=== PATIENT | male | born 1995 | race Caucasian/White ===

== ENCOUNTER 2021-11-27 16:42 | Emergency (ER) | payer OTHER, SELFPAY ==
[2021-11-27 16:51] VITALS: BP 128/73; PULSE 59; RESP 18; TEMP 36.6; O2SAT 100; BMI 29.0
--- NOTE | 2021-11-27 17:15 | CRLHL7_ITS ---
For Patients: As a result of the Century Cures Act, medical imaging exams and procedure reports are released immediately into your electronic medical record. You may view this report before your referring provider. If you have questions, please contact your health care provider. HISTORY: Shortness of breath. COMPARISON: None available FINDINGS: A portable erect AP view of the chest was obtained at 1745 hours. The lungs are clear. No focal or diffuse infiltrates are present. The heart is normal in size. The mediastinum is normal in appearance. The osseous structures are normal in appearance for the patient`s age. IMPRESSION: Normal portable chest single view. Dictated by Babak Armstrong MD @ 11/27/2021 5:46:44 PM (Electronically Signed)
[2021-11-27 17:24] VITALS: O2SAT 100
--- OUTSIDE RECORDS SUMMARY | 2021-11-27 17:29 | XMS_ITS | Clinical Summary ---
:1995 Author Organization [employer] [facility] [place] [address] Care Team Providers Name Role Phone None, Primary Care Provider Unavailable Allergies Active Allergy Reactions Severity Noted Date Comments Azithromycin *Unknown - Childhood Rxn, Hives Low 6 Cefpodoxime Proxetil Hives 08/14/2008 Cefpodoxime *Unknown - Childhood Rxn 06/16/2016 Medications Medication Sig Dispensed Refills Start Date End Date Status ibuprofen (ADVIL; Take 200 mg by 0 Active MOTRIN) 200 mg tablet mouth 4 times daily if needed. cetirizine (ZYRTEC) 10 Take 10 mg by 0 Active mg tablet mouth once daily. minocycline (MINOCIN) Take 2 capsules by 0 7 Active 50 mg capsule mouth 2 times daily. PATADAY 0.2 % Place 2 Drops into 0 06/09/2016 Active ophthalmic solution the eye(s) once daily. olopatadine (PATADAY) 1 Drop. 0 Active 0.2 % ophthalmic solution cetirizine (ZYRTEC) 10 Take 10 mg by 0 Active mg tablet mouth. fluticasone Inhale 1 Puff by 0 A ctive propion-salmeteroL mouth. (ADVAIR) 100-50 mcg/dose diskus inhaler albuterol HFA Inhale 2 Puffs by 0 Active (PRO-AIR; VENTOLIN; mouth every 6 PROVENTIL) 90 hours. mcg/actuation inhaler fluticasone furoate Inhale 1 [place] 0 Active (VERAMYST) 27.5 into affected mcg/actuation nasal nostril(s). spray Active Problems Not on file Social History Tobacco Use Types Packs/Day Years Used Date Never Smoker Smokeless Tobacco: Never Used Alcohol Use Standard Drinks/Week Comments No 0 (1 standard drink = 0.6 oz pure alcoho l) Sex Assigned at Date Recorded Not on file Obstetrics History Last Filed Vital Signs Vital Sign Reading Time Taken Comments Blood Pressure 117/76 05/21/2021 1:07 PM CDT Pulse 67 05/21/2021 1:07 PM CDT Temperature 36.8 ??C (98.2 ??F) 05/21/2021 1:07 PM CDT Respiratory Rate 16 05/21/2021 1:07 PM CDT Oxygen Saturation 98% 05/21/2021 1:07 PM CDT Inhaled Oxygen Concentration - - Weight 96.2 kg (212 lb) 05/21/2021 1:07 PM CDT Height 185.4 cm (6' 1) 05/21/2021 1:07 PM CDT Body Mass Index 27.97 05/21/2021 1:07 PM CDT Plan of Treatment Health Maintenance Due Date Last Done Comments HPV series for age 9-26 (1 - Male 2-dose 12/19/2007 series) Tdap 12/19/2007 Depression screening for age 12+ 2008 Hepatitis C screening for age 18-79 2014 Tetanus booster 2016 COVID-19 vaccine series (3 - Booster for 09/29/2020 021, 07/07/2020 Moderna series) Influenza for age 9-49 10/06/2021 BMI (ht and wt on same day) for age 18+ 05/21/2022 05/22/19 22, 06/16/2016 Results Not on filefrom Last 3 Months Insurance Payer Benefit Plan / Subscriber ID Effective Dates Phone Addre ss Type Group PREFERRED ONE [employer] [id number] 2020-Present [id number] [place] [address] Care Teams Cell Inspector Relationship Specialty Start Date End Date None, PCP - General Unknown Physician Specialty 06/16/16 .
--- OUTSIDE RECORDS SUMMARY | 2021-11-27 17:29 | XMS_ITS | Encounter Summary ---
:1995 Author Organization [facility] Address [address] [place] [id number] Care Team Providers Name Role Phone Unavailable Primary Care Provider Unavailable Encounter Details Date Type Department Care Team Description 06/07/2021 Travel Social History Tobacco Use Types Packs/Day Years Used Date Smoking Tobacco: Never Assessed Sex Assigned at Date Recorded Not on file COVID-19 Exposure Response Date Recorded In the last 10 days, have you been in contact with No / Unsu re 06/07/2021 10:56 PM CDT someone who was confirmed or suspected to have Coronavirus/COVID-19? documented as of this encounter Plan of Treatment Not on filedocumented as of this encounter Visit Diagnoses Not on filedocumented in this encounter Additional Health Concerns Infection Onset Date Last Indicated Resolved Time Rule Out COVID-19 06/07/2021 06/07/2021 06/08/2021 12: 43 AM CDT documented as of this encounter
--- OUTSIDE RECORDS SUMMARY | 2021-11-27 17:29 | XMS_ITS | Encounter Summary ---
:1995 Author Organization [place] Address [address] [place] [address] Care Team Providers Name Role Phone No Ref-Primary, Physician Primary Care Provider [phone] Reason for Visit Reason Comments Shortness of Breath Cough Encounter Details Date Type Department Care Team Description 06/07/2021 - [facility] Marco Antonio Worthy MD Acute viral bronchitis; 06/08/2021 [facility] Mod erate persistent asthma with exacerbation Dept [place] [address] [facility] [address] [place], [place] [id number] [phone] Social History Tobacco Use Types Packs/Day Years Used Date Smoking Tobacco: Never Assessed Sex Assigned at Date Recorded Not on file COVID-19 Exposure Response Date Recorded In the last 10 days, have you been in contact with No / Unsu re 06/07/2021 10:56 PM CDT someone who was confirmed or suspected to have Coronavirus/COVID-19? documented as of this encounter Last Filed Vital Signs Vital Sign Reading Time Taken Comments Blood Pressure 137/105 06/07/2021 10:58 PM CDT Pulse 63 06/07/2021 10:58 PM CDT Temperature 36.7 ??C (98 ??F) 06/07/2021 10:58 PM CDT Respiratory Rate 18 06/07/2021 10:58 PM CDT Oxygen Saturation 97% 06/07/2021 10:58 PM CDT Inhaled Oxygen Concentration - - Weight 100.1 kg (220 lb 10.9 oz) 06/07/2021 10:58 PM CDT Height 185.4 cm (6' 1) 06/07/2021 10:58 PM CDT Body Mass Index 29.12 06/07/2021 10:58 PM CDT documented in this encounter Discharge Instructions AttachmentsThe following attachments cannot be sent through Care Everywhere. Asthma, Acute (Adult) (German)documented in this encounter Medications at Time of Discharge Medication Sig Dispensed Refills Start Date End Date albuterol (PROAIR Inhale 2 puffs into the 18 g 0 06/08 HFA/PROVENTIL lungs every 6 hours as HFA/VENTOLIN HFA) 108 needed for shortness of (90 Base) MCG/ACT breath / dyspnea or inhaler wheezing ALBUTEROL IN 0 predniSONE (DELTASONE) Take two tablets (= 8 tablet 0 06/2021 20 MG tablet 40mg) each day for 4 (four) days documented as of this encounter ED Notes Karin Mckenna RN - 06/08/2021 12:48 AM CDT Agree with triage note. In addition pt states he has not been feeling well for the past week as he has had a cough. Denies fevers. Endorses hx of asthma. Pt states the SOB woke him up tonight and he does feel some tightness of the chest. Bilat lung sounds are clear. Bhavani Gil RN - 06/07/2021 11:00 PM CDT Pt arrives to the ED due to feeling increased SOB. Pt states he was laying in bed when he woke up feeling SOB. Took inhaler with some relief. States having cough for past 1.5 wks. H/o of asthma. Deniesfevers. Marco Antonio Worthy MD - 06/07/2021 10:49 PM CDT History Chief Complaint: Shortness of Breath and Cough HPI Adi Szymanski is a 25 year old male with history of asthma who presents with shortness of breath. Per the patient, he has had a cough for the past 1.5 weeks. He woke up tonight with severe shortness of breath, and using his inhaler helped relieve this. He denies fever. He is COVID vaccinated but not influenza vaccinated. Review of Systems Constitutional: Negative for fever. Respiratory: Positive for cough and shortness of breath. All other systems reviewed and are negative. Allergies: Cefpodoxime Azithromycin Medications: Albuterol Past Medical History: Seasonal allergies Asthma Past Surgical History: Hernia repair Social History: The patient was accompanied to the ER by a family member. Physical Exam Patient Vitals for the past 24 hrs: BP Temp Temp src Pulse Resp SpO2 Height Weight 06/07/21 2258 137/105 98 ??F (36.7 ??C) Oral 63 18 97 % 1.854 m (6' 1) 100.1 kg (220 lb 10.9 oz) Physical Exam Nursing note and vitals reviewed. Constitutional: Cooperative. HENT: Mouth/Throat: Mucous membranes are normal. Cardiovascular: Normal rate, regular rhythm and normal heart sounds. No murmur. Pulmonary/Chest: Effort normal and breath sounds normal. No respiratory distress. No wheezes. No rales. Abdominal: Soft. Normal appearance. There is no tenderness. Neurological: Alert. Oriented x4. Skin: Skin is warm and dry. No rash noted. Psychiatric: Normal mood and affect. Emergency Department Course Imaging: XR Chest Port 1 View Final Result IMPRESSION: Negative chest. The above imaging workup was performed. Report per radiology Laboratory: Labs Ordered and Resulted from Time of ED Arrival to Time of ED Departure INFLUENZA A/B & SARS-COV2 PCR MULTIPLEX - Normal Result Value Influenza A PCR Negative Influenza B PCR Negative RSV PCR Negative SARS CoV2 PCR Negative Reviewed: I reviewed nursing notes, vitals and past medical history Assessments: 0041 I obtained history and examined the patient as noted above. Interventions: Prednisone, 60 mg, Oral Disposition: The patient was discharged to home. Impression & Plan Medical Decision Making: Adi Szymanski is a 25 year old male with a PMH of asthma who presents for evaluation of shortness of breath. A broad differential was considered including foreign body, asthma, pneumonia, bronchitis, reactive airway disease, pneumothorax, cardiac equivalent, viral induced wheezing, allergic phenomena, etc. Signs and symptoms are consistent with asthma exacerbation due to viral bronchitis. He feels improved after using an inhaler, and was given a dose of steroids here in the ED. There are no signs at this point of any serious etiologies including those mentioned above. No indication for hospitalization at this time including no hypoxia, no marked increase in respiratory rate, minimal to no retractions. Supportive outpatient management is indicated, medications for discharge noted above. Close followup with primary care physician. Return if increased wheezing, progressive shortness of breath, develops fever greater than 102. Covid-19 Adi Szymanski was evaluated during a global COVID-19 pandemic, which necessitated consideration that the patient might be at risk for infection with the SARS-CoV-2 virus that causes COVID-19. Applicable protocols for evaluation were followed during the patient's care. COVID-19 was considered as part of the patient's evaluation. The plan for testing is: a test was obtained during this visit. Diagnosis: ICD-10-CM 1. Acute viral bronchitis J20.8 2. Moderate persistent asthma with exacerbation J45.41 Discharge Medications: New Prescriptions ALBUTEROL (PROAIR HFA/PROVENTIL HFA/VENTOLIN HFA) 108 (90 BASE) MCG/ACT INHALER Inhale 2 puffs intothe lungs every 6 hours as needed for shortness of breath / dyspnea or wheezing PREDNISONE (DELTASONE) 20 MG TABLET Take two tablets (= 40mg) each day for 4 (four) days Scribe Disclosure: Aniceto Khan, arpit serving as a scribe at 12:18 AM on 06/08/2021 to document services personally performed by Marco Antonio Worthy MD based on my observations and the provider's statements to me. Marco Antonio Worthy MD 06/08/21 0641 documented in this encounter Plan of Treatment Not on filedocumented as of this encounter Procedures Procedure Name Priority Date/Time Associated Diagnosis Comme nts XR CHEST PORT 1 STAT 06/08/2021 12:20 AM Resul ts for this VIEW CDT procedure are i n the results section. INFLUENZA A/B & STAT 06/07/2021 11:58 PM Resul ts for this SARS-COV2 PCR CDT procedure are in MULTIPLEX the results section. documented in this encounter Results XR Chest Port 1 View (06/08/2021 12:20 AM CDT) Anatomical Region Laterality Modality Chest Digital Radiography Specimen (Source) Anatomical Collection Method Collection Time Re ceived Time Location / / Volume Laterality 06/08/2021 12:03 AM CDT Impressions 06/08/2021 12:23 AM CDT IMPRESSION: Negative chest. Narrative 06/08/2021 12:23 AM CDT EXAM: XR CHEST PORT 1 VIEW LOCATION: [facility] DATE/TIME: 06/08/2021 12:03 AM INDICATION: Cough. COMPARISON: None. Procedure Note Arvind Tidwell MD - 06/08/2021Form atting of this note might be different from the original. EXAM: XR CHEST PORT 1 VIEW LOCATION: [facility] DATE/TIME: 06/08/2021 12:03 AM INDICATION: Cough. COMPARISON: None. IMPRESSION: Negative chest. Marco Antonio Worthy MD IMG DIAGNOSTIC IMAGING ORDER JACKIE Symptomatic; Yes; 05/31/2021 Influenza A/B & SARS-CoV2 (COVID-19) Virus PCR Multiplex Nasopharyngeal (06/07/2021 11:58 PM CDT) Analysis Performed At Patho logist Time Signature Influenza A Negative Negative 06/08/2021 LABORATORY PCR 12:43 AM CDT Influenza B Negative Negative 06/08/2021 [facility] PCR 12:43 AM CDT RSV PCR Negative Negative 06/08/2021 LABORATORY 12:43 AM CDT SARS CoV2 PCR Negative Negative 06/08/2021 LABORATORY 12:43 AM CDT Comment: NEGATIVE: SARS-CoV-2 (COVID-19) RNA not detected, presumed negative. Specimen Anatomical Location / Collection Method Collection Eb e Received Time (Source) Laterality / Volume Swab NASOPHARYNGEAL Non-blood 06/07/2021 11:58 STRUCTURE / Unknown Collection / PM CDT 12:03 AM CDT Unknown Narrative [facility] - 06/08/2021 12:43 AM CDT Testing was performed using the Xpert Xpress CoV2/Flu/RSV Assay on the [employer] GeneXpert Instrument. This test should be ordered for the detection of SARS-CoV- 2 and influenza viruses in individuals who meet clinical and/or epidemiological cri teria. Test performance is unknown in asymptomatic patients. This test is for in vitro diagnostic use under the FDA EUA for laboratories certified under CLIA to p erform high or moderate complexity testi ng. This test has not been FDA cleared or approved. A negative result does not rule out the presence of PCR inhibitors in the specimen or target RNA in concentrat ion below the limit of detection for the assay. If only one viral target is positive but coinfection with multiple targets is suspected, the sample should be re-tested with another FDA cleared, approved , or authorized test, if coinfection wou ld change clinical management. This test was validated by the [facility] varinode. These laboratories are certified under the Clinical Laboratory Improvement Amendments of 198 8 (CLIA-88) as qualified to perform high complexity laboratory testing. Marco Antonio Worthy MD LAB - MICRO GENERAL ORDERABL ES Performing Organization Address City/State/[place] [id number] Care [facility] [address] [facility] (1st floor, no room number) documented in this encounter Visit Diagnoses Diagnosis Acute viral bronchitis Acute bronchitis Moderate persistent asthma with exacerba tion Unspecified asthma, with exacerbation documented in this encounter Administered Medications Inactive Administered Medications - up to 3 most recent administrations Medication Order MAR Action Action Date Dose Rate Site predniSONE (DELTASONE) tablet 60 Given 06/08/2021 12:51 AM CDT 6 0 mg mg 60 mg, Oral, ONCE, On Sun06/08/21 at 0050, For 1 dose documented in this encounter Active and Recently Administered Medications Times are shown in CDT. Scheduled Medication Order 06/06/2021 06/07/2021 06/08/2021 predniSONE (DELTASONE) tablet 60 mg (COMPLETED) 005 (Given - Provider: Karin Mckenna RN) 60 mg, Oral, ONCE, On Sun06/08/21 at 0050, For 1 dose documented in this encounter Additional Health Concerns Infection Onset Date Last Indicated Resolved Time Rule Out COVID-19 06/07/2021 06/07/2021 06/08/2021 12: 43 AM CDT documented as of this encounter Care Teams Software Test Analyst Relationship Specialty Start Date End Date No Ref-Primary, Physician PCP - General 06/08/21 documented as of this encounter
--- OUTSIDE RECORDS SUMMARY | 2021-11-27 17:29 | XMS_ITS | Encounter Summary ---
:1995 Author Organization [facility] Address [address] [place] [address] Care Team Providers Name Role Phone Unavailable Primary Care Provider Unavailable Encounter Details Date Type Department Care Team Description 03/07/2019 Office Visit - [facility] Pepe Mc, [facility] [place] [address] [place] [address] [address] [place] [phone] Social History Tobacco Use Types Packs/Day Years Used Date Smoking Tobacco: Never Assessed Sex Assigned at Date Recorded Not on file documented as of this encounter Last Filed Vital Signs Vital Sign Reading Time Taken Comments Blood Pressure 120/80 03/07/2019 1:08 PM METAL CAN INSPECTOR Pulse 48 03/07/2019 1:08 PM METAL CAN INSPECTOR Temperature 36 ??C (96.8 ??F) 03/07/2019 1:08 PM METAL CAN INSPECTOR Respiratory Rate 16 03/07/2019 1:08 PM METAL CAN INSPECTOR Oxygen Saturation - - Inhaled Oxygen Concentration - - Weight 94.3 kg (208 lb) 03/07/2019 1:08 PM METAL CAN INSPECTOR Height 184.8 cm (6' 0.75) 03/07/2019 1:08 PM METAL CAN INSPECTOR Body Mass Index 27.63 03/07/2019 1:08 PM METAL CAN INSPECTOR documented in this encounter Progress Notes Pepe Mc PA-C - 03/07/2019 1:16 PM CSTSummary: General Progress Note (Physician) Patient: VANIA HARDIN Age: 23 years Sex: Male : 1995 Associated Diagnoses: Instability of left shoulder joint Author: Pepe Mc PA-C Chief Complaint 03/07/2019 1:08 PM METAL CAN INSPECTOR New pt here for Left shoulder pain that happened while he was lifting weights yesterday. History of Present Illness Chief complaint and symptoms noted above and confirmed with patient was lifting weights yesterday, and injured his left shoulder, feels like it popped out of socket while doing an overhead lift this has not happened before took ibuprofen yesterday and iced it no radiation into arm Review of Systems Constitutional: Negative. Ear/Nose/Mouth/Throat: Negative. Respiratory: Negative. Gastrointestinal: Negative. Musculoskeletal: Joint pain. Health Status Allergies: Allergic Reactions (Selected) Severity Not Documented Vantin (No reactions were documented) Zithromax (No reactions were documented) Medications: zyrtec prn Histories Past Medical History: No active or resolved past medical history items have been selected or recorded. Family History: CAD (Coronary Artery Disease) Father HTN (Hypertension) Father Hypercholesterolemia Father Procedure history: History of hernia repair ([id number]). Physical Examination Vital Signs 03/07/2019 1:08 PM METAL CAN INSPECTOR Temperature Tympanic 96.8 DegF LOW Peripheral Pulse Rate 48 bpm LOW Pulse Site Radial artery Respiratory Rate 16 br/min Systolic Blood Pressure 120 mmHg Diastolic Blood Pressure 80 mmHg Mean Arterial Pressure 93 mmHg BP Site Right arm Vital Signs Comments Pulse Irregular General: No acute distress. Respiratory: Lungs are clear to auscultation. Cardiovascular: Normal rate, Regular rhythm, No murmur. Musculoskeletal: Left shoulder: good active ROM, good clerk of works strength, good resisted suppination/pronation, good resisted flexion/extension, good resisted external rotation, full can test is negative, impingement test is positive, shoulder apprehension test is positive, no crepitus with passive ROM; there is pain over posterior left shoulder. Impression and Plan Diagnosis Instability of left shoulder joint ([id number] M25.312). Summary: will refer to PT for shoulder stabilization, continue with ibuprofen for the next week no overhead work, follow up if not improving if instability continues will consider referral to ortho. Orders Orders Requests (Procedures): Physical Therapy (Request) (Order): Instability of left shoulder joint. Orders Charges (Evaluation and Management): 16098 office outpatient new 30 minutes (Charge) (Order): Quantity: 1, Instability of left shoulder joint. L CAN INSPECTOR documented in this encounter Nursing Notes Obey Cabrales MA - 03/07/2019 2:54 PM CSTSummary: Assessment Form CAGE Assessment Entered On: 03/07/2019 2:54 PM METAL CAN INSPECTOR Performed On: 03/07/2019 2:54 PM METAL CAN INSPECTOR by Obey Cabrales CMA Assessment Have you ever felt you should cut down on your drinking : No Have people annoyed you by criticizing your drinking : No Have you ever felt bad or guilty about your drinking : No Have you ever taken a drink first thing in the morning to steady your nerves or get rid of a hangover (Eye-print cutter) : No CAGE Score : 0 Obey Cabrales CMA - 03/07/2019 2:54 PM METAL CAN INSPECTOR L CAN INSPECTOR Obey Cabrales MA - 03/07/2019 2:54 PM CSTSummary: Assessment Form Depression Screening Entered On: 03/07/2019 2:54 PM METAL CAN INSPECTOR Performed On: 03/07/2019 2:54 PM METAL CAN INSPECTOR by Obey Cabrales CMA Depression Screening Little Interest - Pleasure in Activities : Not at all Feeling Down, Depressed, Hopeless : Several days Initial Depression Screen Score : 1 Trouble Falling or Staying Asleep : More than half the days Feeling Tired or Little Energy : Several days Poor Appetite or Overeating : Not at all Feeling Bad About Yourself : Not at all Trouble Concentrating : Not at all Moving or Speaking Slowly : Not at all Thoughts Better Off or Hurting Self : Not at all Detailed Depression Screen Score : 3 Total Depression Screen Score : 4 CHRISTOFER Difficulty with Work, Home, Others : Not difficult at all Obey Cabrales CMA - 03/07/2019 2:54 PM METAL CAN INSPECTOR L CAN INSPECTOR Obey Cabrales MA - 03/07/2019 1:08 PM CSTSummary: Intake Form Comprehensive Intake Entered On: 03/07/2019 1:16 PM METAL CAN INSPECTOR Performed On: 03/07/2019 1:08 PM METAL CAN INSPECTOR by Obey Cabrales CMA Summary Chief Complaint : New pt here for Left shoulder pain that happened while he was lifting weights yesterday. Weight Measured : 208 lb(Converted to: 208 lb 0 oz, 94.35 kg) Height Measured : 72.75 in(Converted to: 6 ft 1 in, 184.78 cm) Body Mass Index : 27.63 kg/m2 (HI) Body Surface Area : 2.2 m2 Systolic Blood Pressure : 120 mmHg Diastolic Blood Pressure : 80 mmHg Mean Arterial Pressure : 93 mmHg Peripheral Pulse Rate : 48 bpm (LOW) Vital Signs Comments : Pulse Irregular BP Site : Right arm Pulse Site : Radial artery Temperature Tympanic : 96.8 DegF(Converted to: 36.0 DegC) (LOW) Respiratory Rate : 16 br/min Obey Cabrales CMA - 03/07/2019 1:08 PM METAL CAN INSPECTOR Health Status Allergies Verified? : Yes Medication History Verified? : Yes Medical History Verified? : Yes Pre-Visit Planning Status : Not completed Tobacco Use? : Never smoker Obey Cabrales CMA - 03/07/2019 1:08 PM METAL CAN INSPECTOR Meds / Allergies (As Of: 03/07/2019 1:16:14 PM METAL CAN INSPECTOR) Allergies (Active) Vantin Estimated Onset Date: Unspecified ; Created By: Obey Cabrales CMA; Reaction Status: Active ;Category: Drug ; Substance: Vantin ; Type: Allergy ; Updated By: Obey Cabrales CMA; Reviewed Date: 03/07/2019 1:12 PM METAL CAN INSPECTOR Zithromax Estimated Onset Date: Unspecified ; Created By: Obey Cabrales CMA; Reaction Status: Active ; Category: Drug ; Substance: Zithromax ; Type: Allergy ; Updated By: Obey Cabrales CMA; Reviewed Date: 03/07/2019 1:12 PM METAL CAN INSPECTOR Medication List (As Of: 03/07/2019 1:16:14 PM METAL CAN INSPECTOR) Past Medical History Past Medical History (As Of: 03/07/2019 1:16:14 PM METAL CAN INSPECTOR) Procedures / Surgeries - Procedure History (As Of: 03/07/2019 1:16:14 PM METAL CAN INSPECTOR) Anesthesia Minutes: 0 ; Procedure Name: History of hernia repair ; Procedure Minutes: 0 ; Last Reviewed Dt/Tm: 03/07/2019 1:13:16 PM METAL CAN INSPECTOR Family History Family History (As Of: 03/07/2019 1:16:14 PM METAL CAN INSPECTOR) Father: Relation: Father ; Gender: Male ; Nomenclature: CAD (Coronary Artery Disease) ; Value: Positive Nomenclature: HTN (Hypertension) ; Value: Positive Nomenclature: Hypercholesterolemia ; Value: Positive Social History Social History (As Of: 03/07/2019 1:16:14 PM METAL CAN INSPECTOR) Alcohol: Current, 1-2 times per week (Last Updated: 03/07/2019 1:12:33 PM METAL CAN INSPECTOR by Obey Cabrales CMA) Tobacco: Never (less than 100 in lifetime) (Last Updated: 03/07/2019 1:12:22 PM METAL CAN INSPECTOR by Obey Cabrales CMA) Substance Abuse: Never (Last Updated: 03/07/2019 1:12:46 PM METAL CAN INSPECTOR by Obey Cabrales CMA) L CAN INSPECTOR documented in this encounter Plan of Treatment Not on filedocumented as of this encounter Visit Diagnoses Not on filedocumented in this encounter
--- OUTSIDE RECORDS SUMMARY | 2021-11-27 17:29 | XMS_ITS | Clinical Summary ---
:1995 Author Organization [facility] Address [address] [place] [address] Care Team Providers Name Role Phone No Ref-Primary, Physician Primary Care Provider [phone] Allergies Active Allergy Reactions Severity Noted Date Comments Azithromycin Hives Low 09/21/2005 Cefpodoxime Hives 08/14/2008 Medications Medication Sig Dispensed Refills Start Date End Date Status ALBUTEROL IN 0 Active predniSONE Take two tablets (= 8 tablet 0 06/09/2021 Active (DELTASONE) 20 MG 40mg) each day for tablet 4 (four) days albuterol (PROAIR Inhale 2 puffs into 18 g 0 06/08/2021 Active HFA/PROVENTIL the lungs every 6 HFA/VENTOLIN HFA) 108 hours as needed for (90 Base) MCG/ACT shortness of breath inhaler / dyspnea or wheezing Social History Tobacco Use Types Packs/Day Years Used Date Smoking Tobacco: Never Assessed Sex Assigned at Date Recorded Not on file Last Filed Vital Signs Vital Sign Reading [...] Mass Index 29.12 06/07/2021 10:58 PM CDT Plan of Treatment Health Maintenance Due Date Last Done Comments ADVANCE CARE PLANNING 1995 ANNUAL REVIEW OF HM ORDERS 1995 ASTHMA ACTION PLAN 1995 ASTHMA CONTROL TEST 1995 YEARLY PREVENTIVE VISIT 1995 COVID-19 Vaccine (#1) 06/17/1997 HIV SCREENING 12/19/2011 HEPATITIS C SCREENING 2014 PHQ-2 (once per calendar 02/05/2021 year) INFLUENZA VACCINE (#1) 2021 11/22/2016, 11/30/2010, 12/10/2009, Additional history exists DTAP/TDAP/TD IMMUNIZATION 09/17/2028 09/17/2018, 09/15/2008 , (5 - Td or Tdap) 12/24/2001, Additional history exists HEPATITIS B IMMUNIZATION Completed 06/15/1998, 03/19/1997, 1995 IPV IMMUNIZATION Completed 12/24/2001, 07/01/1997, 04/21/1997, Additional history exists MENINGITIS IMMUNIZATION Completed 08/29/2013, 09/15/2008 Pneumococcal Vaccine: Aged Out 05/12/2016 No longer eligible Pediatrics (0 to 5 Years) based on patient's age and At-Risk Patients (6 to to co mplete this topic 64 Years) HPV IMMUNIZATION Completed 03/09/2017, 05/12/2016, 08/13/2015 Insurance Payer Benefit Plan / Subscriber ID Effective Phone Address T ype Group Dates [employer] [id number] [facility] [phone] [address] [employer] [id number] [place] [address] Care Teams Relationship Advisor Relationship Specialty Start Date End Date No Ref-Primary, Physician PCP - General 06/08/21
[2021-11-27 17:30] VITALS: BP 110/79; PULSE 57; RESP 14; O2SAT 95
[2021-11-27 17:33] LABS: Lactate* 1.5 mmol/L (0.5-1.9)
[2021-11-27 17:52] LABS: Albumin* 4.5 g/dL (3.3-5.0)
[2021-11-27 17:54] LABS: Chloride* 103 mmol/L (96-114); Potassium* 3.7 mmol/L (3.6-5.1); Sodium* 137 mmol/L (135-149)
[2021-11-27 17:55] LABS: Alanine Aminotransferase* 51 U/L (4-50); Alkaline Phosphatase* 53 U/L (40-150); Aspartate Amino Transferase* 31 U/L (12-35); Bilirubin Total* 0.4 mg/dL (0.1-1.5); Total Protein* 6.8 g/dL (6.0-8.3)
[2021-11-27 17:57] LABS: Creatinine* 1.1 mg/dL (0.5-1.5); Est. Creatinine Clearance* 117.03; Estimated Glomerular Filt Rate 96 ml/min
[2021-11-27 17:58] LABS: Blood Urea Nitrogen* 21 mg/dL (5-24); Calcium* 9.7 mg/dL (8.4-10.6); Carbon Dioxide* 24 mmol/L (20-32); Glucose* 92 mg/dL (60-115)
[2021-11-27 18:02] LABS: C Reactive Protein* < 0.5 mg/dL (0.5-1.0)
[2021-11-27 18:05] LABS: D Dimer Quantitative* < 0.27 ug/ml (0.00-0.50)
[2021-11-27 18:09] LABS: Troponin I* < 0.01 ng/mL (0.01-0.04)
[2021-11-27 18:09] LABS: PCR FLU A Negative PCR FLU A (Negative); PCR FLU B Negative PCR FLU B (Negative)
[2021-11-27 18:10] LABS: Erythrocyte SedimentationRate* 2 mm/hr (2-15)
[2021-11-27 18:16] LABS: SARS PCR* Negative SARS-CoV-2 (Negative)
--- NOTE | 2021-11-27 18:19 | ED.GENADULT ---
HPI - General Adult General Chief complaint: Shortness of Breath/Dyspnea Stated complaint: Chest pain and Shortness of Breath Time Seen by Provider: 11/27/21 16:51 Source: patient Mode of arrival: ambulatory Limitations: no limitations History of Present Illness HPI narrative: 25-year-old male coming in today complaining shortness of breath. He states that comes in waves when all of a sudden he says that he can not quite catch his breath. It can happen at rest or with activity. He is not coughing. He does not have chest pain. He does not feel dizzy or lightheaded. He states that this occurred about 4 months ago when he when it to the ER in [place], they gave him an inhaler in sent him home. He does have a history of asthma but does not take anything on a regular basis. He denies any fevers or chills. He denies any palpitations. The patient does not smoke or vape. He denies other drug use. He denies any recent traveling or surgery. Related Data Home Medications Medication Instructions Recorded Confirmed No Known Home Medications 11/27/21 11/27/21 Allergies Allergy/AdvReac Type Severity Reaction Status Date / Time azithromycin [From Zithromax] Allergy Unknown Verified 11/27/21 16:58 cefpodoxime [From Vantin] Allergy Unknown Verified 11/27/21 16:58 Review of Systems Status of ROS: Reports: 10 or more systems reviewed and unremarkable except as noted in History and below [facility] Social History Smoking Status: Smoker, status unknown Non-prescribed substance use: denies use Exam Narrative: Exam Narrative: Well-nourished well-developed patient in no acute distress. Alert and oriented. Answers questions appropriately. Mood and affect are appropriate. Thoughts are goal oriented and rational. No tangential or magical thinking noted. Patient speaks in full sentences without needing to catch their breath. HEENT: Normocephalic atraumatic. Pupils are equally round reactive to light. Extraocular muscles are intact. Conjunctivae are moist without any icterus noted. Moist mucous membranes. Posterior pharynx is normal. Neck is soft without any lymphadenopathy or thyromegaly. No masses are appreciated. Cardiovascular: Heart is regular rate and rhythm S1 and S2 are present without any murmurs. Lungs: Clear to auscultation bilaterally no wheezes rhonchi or rales are appreciated. Patient takes deep breaths without any discomfort. Abdomen: Soft and nontender nondistended with normal bowel sounds. No guarding or rebound. No masses or organomegaly appreciated. Extremities: Bilateral lower extremities are without edema. Normal DP and PT pulses. Skin: Well perfused without any obvious rashes. Const: Vital Signs, click to edit/add: Vital Signs - 24 hr 11/27/21 16:51 11/27/21 17:24 11/27/21 17:30 Temperature 98 F Pulse Rate [Pulse Oximeter] 59 L 57 L Respiratory Rate 18 14 Blood Pressure [Le ft Upper Arm] 128/73 110/79 Pulse Oximetry 100 100 95 Oxygen Delivery Me thod Room Air Room Air Course Course Hospital Course: EKG was done, read by me, shows sinus bradycardia, pulse 52 with a right bundle-branch block which patient states is not new. Workup was entirely normal. Patient remained in the upper 90s on room air while he was here with a respiratory rate in the teens, hemodynamically stable. Vital Signs Vital signs: Initial Vital Signs Temperature 98 F 11/27/21 16:51 Temperature Source Temporal Artery Scan 11/27/21 16:51 Pulse Rate 59 L 11/27/21 16:51 Respiratory Rate 18 11/27/21 16:51 Blood Pressure 128/73 11/27/21 16:51 Blood Pressure Mean 91 11/27/21 16:51 Blood Pressure Position Supine 11/27/21 16:51 Pulse Oximetry 100 11/27/21 16:51 Oxygen Delivery Method 11/27/21 16:51 Vital Signs Temperature 98 F 11/27/21 16:51 Pulse Rate 59 L 11/27/21 16:51 Respiratory Rate 18 11/27/21 16:51 Blood Pressure 128/73 11/27/21 16:51 Pulse Oximetry 100 11/27/21 16:51 Oxygen Delivery Method 11/27/21 16:51 Temperature 98 F 11/27/21 16:51 Pulse Rate 57 L 11/27/21 17:30 Respiratory Rate 14 11/27/21 17:30 Blood Pressure 110/79 11/27/21 17:30 Pulse Oximetry 95 11/27/21 17:30 Oxygen Delivery Method 11/27/21 17:30 Medical Decision Making MDM Narrative Medical decision making narrative: 25-year-old male with subjective shortness of breath. We discussed things that can cause this including anxiety. We discussed following up with primary care provider. Patient had no other questions. Lab Data Lab results reviewed: Yes I reviewed the patient's lab results Labs: Lab Results 11/27/21 11/27/21 11/27/21 Range/Units 17:20 17:26 17:26 ESR 2 (2-15) mm/hr D-Dimer Quant (PE/DVT) (0.00-0.50) ug/ml Sodium 137 (135-149) mmol/L Potassium 3.7 (3.6-5.1) mmol/L Chloride 103 (96-114) mmol/L Carbon Dioxide 24 (20-32) mmol/L BUN 21 (5-24) mg/dL Creatinine 1.1 (0.5-1.5) mg/dL Estimated Creat Clear 117.03 Estimated GFR 96 ml/min Glucose 92 (60-115) mg/dL Lactate (0.5-1.9) mmol/L Calcium 9.7 (8.4-10.6) mg/dL Total Bilirubin (0.1-1.5) mg/dL Direct Bilirubin (0.0-0.5) mg/dL AST (12-35) U/L ALT (4-50) U/L Alkaline Phosphatase (40-150) U/L Troponin I (0.01-0.04) ng/mL C-Reactive Protein < 0.5 L (0.5-1.0) mg/dL Total Protein (6.0-8.3) g/dL Albumin (3.3-5.0) g/dL SARS-CoV-2 (PCR) Negative SARS-CoV-2 (Negative) Influenza Type A (PCR) Negative PCR FLU A (Negative) Influenza Type B (PCR) Negative PCR FLU B (Negative) 11/27/21 11/27/21 11/27/21 Range/Units 17:26 17:26 17:26 ESR (2-15) mm/hr D-Dimer Quant (PE/DVT) < 0.27 (0.00-0.50) ug/ml Sodium (135-149) mmol/L Potassium (3.6-5.1) mmol/L Chloride (96-114) mmol/L Carbon Dioxide (20-32) mmol/L BUN (5-24) mg/dL Creatinine (0.5-1.5) mg/dL Estimated Creat Clear Estimated GFR ml/min Glucose (60-115) mg/dL Lactate 1.5 (0.5-1.9) mmol/L Calcium (8.4-10.6) mg/dL Total Bilirubin 0.4 (0.1-1.5) mg/dL Direct Bilirubin 0.0 (0.0-0.5) mg/dL AST 31 (12-35) U/L ALT 51 H (4-50) U/L Alkaline Phosphatase 53 (40-150) U/L Troponin I < 0.01 L (0.01-0.04) ng/mL C-Reactive Protein (0.5-1.0) mg/dL Total Protein 6.8 (6.0-8.3) g/dL Albumin 4.5 (3.3-5.0) g/dL SARS-CoV-2 (PCR) (Negative) Influenza Type A (PCR) (Negative) Influenza Type B (PCR) (Negative) Imaging Data Chest x-ray: Attestation: I have reviewed the pertinent imaging results. My impression: No acute findings Radiologist's impression: A portable erect AP view of the chest was obtained at 1745 hours. The lungs are clear. No focal or diffuse infiltrates are present. The heart is normal in size. The mediastinum is normal in appearance. The osseous structures are normal in appearance for the patient`s age. IMPRESSION: Normal portable chest single view. ECG Data Attestation: I personally reviewed and interpreted this ECG as follows: (Sinus bradycardia, pulse 52, right bundle-branch block) Discharge Plan Discharge Clinical Impression: Shortness of breath Patient Disposition: Home, Self-Care Condition: Stable Additional Instructions: Follow-up with your primary care provider to discuss your symptoms. Consider stress or anxiety as a cause of your symptoms as well. Prescriptions: No Action No Known Home Medications Follow Up/Referrals: Provider,Not a Local [Primary Care Provider] - Stand Alone Forms: [employer] Info Instructions
== END 2021-11-27 18:37 | disposition home or self-care (01) ==
PROVIDERS: Emergency Provider Family Medicine
DX: R06.02 Shortness of breath (principal)
CPT/HCPCS: 36415; 71045; 80048; 80076; 83605; 84484; 85379; 85651; 86140; 87631; 93005; 94761; 99284

== ENCOUNTER 2021-12-22 07:41 | Outpatient (CLI) | payer OTHER, SELFPAY ==
[2021-12-23 08:57] LABS: Cholesterol* 164 mg/dL (90-199); HDL Cholesterol* 43 mg/dL (>=40); LDL Cholesterol Calculated 96 mg/dL (<100); Triglycerides* 123 mg/dL (40-149)
[2021-12-23 09:15] LABS: Free T4 Free Thyroxine* 1.19 ng/dL (0.70-1.85)
== END 2021-12-22 07:42 | disposition home or self-care (01) ==
LOC: FRMREF 07:42
PROVIDERS: PCP Family Medicine; Visit Provider Family Medicine
DX: Z00.00 Encounter for general adult medical examination without abnormal findings (principal); R53.83 Other fatigue; F41.9 Anxiety disorder, unspecified; Z13.1 Encounter for screening for diabetes mellitus; Z13.6 Encounter for screening for cardiovascular disorders
CPT/HCPCS: 80061; 84439; 84443

== ENCOUNTER 2022-01-24 14:51 | Outpatient (CLI) | payer OTHER, SELFPAY ==
[2022-01-24 15:45] VITALS: BP 122/72; PULSE 83
--- NOTE | 2022-01-24 16:51 | W.PM.STED ---
Stress Test Note Date Date Seen: 01/24/22 Date of test: 01/24/22 Providers Primary care provider: Elizabeth Antonio Stress test physician: Armando Salgado Stress Test Note Stress test ordered: Stress Echo Indication for test: Marisela Results discussion: Patient is a very nice 26-year-old who presents here for the above test after discussion the risks benefits and side effects of this, he would like to proceed pretest EKG shows incomplete right bundle branch block configuration, there is no acute ST wave changes, is rhythm is sinus and rate is 49, blood pressure 1021/68. Exercised for a total time of 12 minutes and 43 seconds, achieved a metabolic equivalent of 13.1 Mets, with a maximum heart rate of 171, which is 103% of the maximum, during this test he had no chest pain, he had some mild fatigue, there is no EKG changes suggestive of ischemia, and there is no dysrhythmias. He recovered normally in the recovery. Impression: Negative electrographic portion of stress echo Follow up suggested: Await echo images these will be read by Cardiology, clinical correlation with these will be needed, patient left this testing facility in excellent condition.
== END 2022-01-24 15:51 | disposition home or self-care (01) ==
LOC: STRESS 14:52
PROVIDERS: PCP Family Medicine; Visit Provider Family Medicine
DX: R06.00 Dyspnea, unspecified (principal); R07.9 Chest pain, unspecified
CPT/HCPCS: 93016; 93325; 93351

== ENCOUNTER 2022-02-23 09:28 | Outpatient (CLI) | payer OTHER, SELFPAY | END 2022-02-23 09:29 | disposition home or self-care (01) | LOC: FRMREF 09:52 | PROVIDERS: PCP Family Medicine; Visit Provider Family Medicine | DX: E03.9 Hypothyroidism, unspecified (principal) | CPT/HCPCS: 84443 ==

== ENCOUNTER 2022-03-31 13:42 | Outpatient (CLI) | payer OTHER, SELFPAY ==
--- NOTE | 2022-03-31 14:40 | W.ANESCHARGE ---
Anesthesia Charges Start Date/Time Anesthesia Start Date: 03/31/22 Anesthesia Start Time: 14:15 Stop Date/Time Anesthesia Stop Date: 03/31/22 Anesthesia Stop Time: 14:34
--- NOTE | 2022-03-31 14:51 | W.ANESCHARGE ---
Anesthesia Charges Start Date/Time Anesthesia Start Date: 03/31/22 Anesthesia Start Time: 14:15 Stop Date/Time Anesthesia Stop Date: 03/31/22 Anesthesia Stop Time: 14:34
== END 2022-03-31 13:43 | disposition home or self-care (01) ==
PROVIDERS: PCP Family Medicine; Visit Provider Internal Medicine
DX: K21.9 Gastro-esophageal reflux disease without esophagitis (principal); R13.10 Dysphagia, unspecified
CPT/HCPCS: 00731; 43239; 88305; J2704; J3490

== ENCOUNTER 2022-06-21 07:09 | Outpatient (CLI) | payer OTHER, SELFPAY ==
--- NOTE | 2022-06-21 07:15 | CRLHL7_ITS ---
For Patients: As a result of the Century Cures Act, medical imaging exams and procedure reports are released immediately into your electronic medical record. You may view this report before your referring provider. If you have questions, please contact your health care provider. INDICATION: Abdominal pain COMPARISON: none TECHNIQUE: Real time caicedo scale imaging and color Doppler analysis was performed of the right upper quadrant. FINDINGS: The patient`s liver is of normal size and has diffusely increased echogenicity. There is an area of decreased attenuation within the right hepatic lobe measuring 2.3 x 1.5 x 2.5 cm. There is a normal appearance of the hepatic IVC and proximal abdominal aorta. There is no evidence of ascites. The gallbladder is of normal size and there is no evidence of intraluminal stones or sludge. The gallbladder wall measures 1 mm in thickness. The common bile duct is of normal size and measures 3 mm in diameter at the level of the kal hepatis. The pancreas appears normal. There is no evidence of a stone or hydronephrosis within the right kidney. The right kidney measures 12.0 cm in length. IMPRESSION: Moderate diffuse hepatic steatosis with indeterminate area of decreased attenuation in the right hepatic lobe measuring 2.5 cm. Dynamic pre and postcontrast CT of the liver recommended for further evaluation. Dictated by Pepe Fine MD @ 06/21/2022 9:14:07 AM (Electronically Signed)
== END 2022-06-21 07:10 | disposition home or self-care (01) ==
LOC: US 07:11
PROVIDERS: PCP Family Medicine; Visit Provider Family Medicine
DX: R10.9 Unspecified abdominal pain (principal); K76.0 Fatty (change of) liver, not elsewhere classified
CPT/HCPCS: 76705

== ENCOUNTER 2022-11-15 08:21 | Outpatient (CLI) | payer OTHER, SELFPAY | END 2022-11-15 08:22 | disposition home or self-care (01) | PROVIDERS: PCP Family Medicine; Visit Provider Family Medicine | DX: E03.9 Hypothyroidism, unspecified (principal); K76.0 Fatty (change of) liver, not elsewhere classified; E66.01 Morbid (severe) obesity due to excess calories; R53.83 Other fatigue; Z13.6 Encounter for screening for cardiovascular disorders | CPT/HCPCS: 80053; 80061; 84443 ==

== ENCOUNTER 2023-11-13 15:18 | Outpatient (CLI) | payer OTHER, SELFPAY ==
--- OUTSIDE RECORDS SUMMARY | 2023-11-13 15:21 | XMS_ITS | Clinical Summary ---
Author Organization [facility] Address [place], [place] [address] Care Team Providers Care Customer Experience Manager Name Role Phone None, Primary Care Provider Unavailabl e Allergies Active Allergy Reactions Criticality Noted Date Comments Azithromycin *Unknown - Childhood Rxn,Hives Low Cefpodoxime Proxetil Hives 08/14/2008 Cefpodoxime *Unknown - Childhood Rxn 06/16/2016 Medications Medication Sig Dispensed Refills Start Date End Date Status ibuprofen (ADVIL; MOTRIN) 200 mg tablet Take 200 mg by mouth 4 times daily if needed. Active cetirizine (ZYRTEC) 10 mg tablet Take 10 mg by mouth once daily. Active minocycline (MINOCIN) 50 mg capsule Take 2 capsules by mouth 2 times daily. 05/06/2016 Active PATADAY 0.2 % ophthalmic solution Place 2 Drops into the eye(s) once daily. 06/09/2016 Active olopatadine (PATADAY) 0.2 % ophthalmic solution 1 Drop. Active cetirizine (ZYRTEC) 10 mg tablet Take 10 mg by mouth. Active fluticasone propion-salmeteroL (ADVAIR) 100-50 mcg/dose diskus inhaler Inhale 1 Puff by mouth. Active albuterol HFA (PRO-AIR; VENTOLIN; PROVENTIL) 90 mcg/actuation inhaler Inhale 2 Puffs by mouth every 6 hours. Active fluticasone furoate (VERAMYST) 27.5 mcg/actuation nasal spray Inhale 1 [place] into affected nostril(s). Active Social History Tobacco Use Types Packs/Day Years Used Date Smoking Tobacco: Never Smokeless Tobacco: Never Alcohol Use Standard Drinks/Week Comments No 0 (1 standard drink = 0.6 oz pur e alcohol) Social Connections Answer Date Recorded Frequency of Communication with Friends and Fami ly Not on file 01/20/2022 Sex and Gender Information Value Date Recorded Sex Assigned at Not on file Gender Identity Not on file Sexual Orientation Not on file Obstetrics History Last Filed Vital Signs Vital Sign Reading Time Taken Comments Blood Pressure 117/76 05/21/2021 1:07 PM CDT Pulse 67 05/21/2021 1:07 PM CDT Temperature 36.8 ??C (98.2 ??F) 05/21/2021 1:07 PM CD T Respiratory Rate 16 05/21/2021 1:07 PM CDT Oxygen Saturation 98% 05/21/2021 1:07 PM CDT Inhaled Oxygen Concentration - - Weight 96.2 kg (212 lb) 05/21/2021 1:07 PM CDT Height 185.4 cm (6' 1) 05/21/2021 1:07 PM CDT Body Mass Index 27.97 05/21/2021 1:07 PM CDT Plan of Treatment Health Maintenance Due Date Last Done Comments Tdap 12/19/2007 Depression screening for age 12+ 2008 HIV for age 15-65 12/19/2011 HPV series for age 9-26 (1 - Male 3-dose series) 12/19/2011 Hepatitis C screening for ag e 18-79 2014 Tetanus booster 2016 BMI (ht and wt on same day) for age 18+ 05/21/2022 05/21/2021, 06/16/2016 COVID-19 vaccine series ( season) 2023 08/04/2020, 07/07/2020 Influenza for age 9-49 10/07/2023 Pneumococcal series for age 6-64 Aged Out No longer eligible b ased on patient's age to complete this topic Care Teams Customer Experience Manager Relationship Specialty Start Date End Date None, Dr Ryder PCP - General Unknown Physician Specialty 06/16/16
--- OUTSIDE RECORDS SUMMARY | 2023-11-13 15:21 | XMS_ITS | Referral Summary ---
Author Organization [place] Address [address] [place] [id number] Care Team Providers Care Grill Prep Cook Name Role Phone No Ref-Primary, Physician Primary Care Provider Allergies Active Allergy Reactions Criticality Noted Date Comments Azithromycin Hives Low 09/21/2005 Cefpodoxime Hives 08/14/2008 Medications Medication Sig Dispensed Refills Start Date End Date Status ALBUTEROL IN Active predniSONE (DELTASONE) 20 MG tablet Take two tablets (= 40mg) each day for 4 (four) days 8 tablet 06/09/2021 Active albuterol (PROAIR HFA/PROVENTIL HFA/VENTOLIN HFA) 108 (90 Base) MCG/ACT inhaler Inhale 2 puffs into the lungs every 6 hours as needed for shortness of breath / dyspnea or wheezing 18 g 06/08/2021 Active Social History Tobacco Use Types Packs/Day Years Used Date Smoking Tobacco: Never Assessed Adolescent Education Answer Date Record ed Getting School Help Needed Not on file 10/28 Sex and Gender Information Value Date Recorded Sex Assigned at Not on file Gender Identity Not on file Sexual Orientation Not on file Last Filed Vital Signs Vital Sign Reading Time Taken Comments Blood Pressure 137/105 06/07/2021 10:58 PM CDT Pulse 63 06/07/2021 10:58 PM CDT Temperature 36.7 ??C (98 ??F) 06/07/2021 10: 58 PM CDT Respiratory Rate 18 06/07/2021 10:5 8 PM CDT Oxygen Saturation 97% 06/07/2021 10: 58 PM CDT Inhaled Oxygen Concentration - - Weight 100.1 kg (220 lb 10.9 oz) 2021 10:58 PM CDT Height 185.4 cm (6' 1) 06/07/2021 10:5 8 PM CDT Body Mass Index 29.12 06/07/2021 10:58 PM CDT Plan of Treatment Not on file Care Teams Grill Prep Cook Relationship Specialty Start Date End Date No Ref-Primary, Physician PCP - General 06/08/21
--- OUTSIDE RECORDS SUMMARY | 2023-11-13 15:21 | XMS_ITS | Clinical Summary ---
Author Organization [facility] Address [address] [place] [id number] Care Team Providers Care Training Executive Name Role Phone No Ref-Primary, Physician Primary [...] CONTROL TEST 1996 YEARLY PREVENTIVE VISIT 1996 HIV SCREENING 12/19/2011 HEPATITIS C SCREENING 2014 Pneumococcal Vaccine: Pediatrics (0 to 5 Years) and At-Risk Patients (6 to 64 Years) (2 of 2 - PCV) 05/12/2017 05/12/2016 PHQ-2 (once per calendar year) 2023 COVID-19 Vaccine ( season) 2023 INFLUENZA VACCINE (#1) 2023 7, 11/30/2010, 12/10/2009, Additional history exists DTAP/TDAP/TD IMMUNIZATION (8 - Td or Tdap) 09/17/2028 09/17/2018, 09/15/2008, 12/24/2001, Additional history exists RSV VACCINE (1 - 1-dose 75+ series) 12/19/2071 HEPATITIS B IMMUNIZATION Completed 999, 03/19/1997, 1996 MENINGITIS IMMUNIZATION Completed 08/29/2013, 09/15 HPV IMMUNIZATION Completed 03/09/2017, 08/2016, 08/13/2015 RSV MONOCLONAL ANTIBODY Aged Out No l onger eligible based on patient's age to complete this topic Care Teams Training Executive Relationship Specialty Start Date End Date No Ref-Primary, Physician PCP - General 06/08/21
== END 2023-11-13 15:19 | disposition home or self-care (01) ==
PROVIDERS: PCP Physician Assistant Medical; Visit Provider Physician Assistant Medical
DX: E03.9 Hypothyroidism, unspecified (principal); K76.0 Fatty (change of) liver, not elsewhere classified
CPT/HCPCS: 80053; 84443